=== PATIENT | female | born 1960 | race Caucasian/White ===

== ENCOUNTER 2020-06-01 23:52 | Observation (INO) | payer MEDICARE ==
[2020-06-02] MEDS ORDERED: hydrALAZINE 20 MG/ML VIAL SLOW IVP PRN (01:01)
[2020-06-02] MEDS ORDERED: Labetalol HCl 100 MG/20 ML VIAL SLOW IVP PRN (01:01)
[2020-06-02] MEDS ORDERED: Acetaminophen 325 MG TAB PO PRN (01:05)
[2020-06-02] MEDS ORDERED: Ondansetron ODT 4 MG TAB PO PRN (01:05)
[2020-06-02] MEDS ORDERED: Rosuvastatin 20 MG TAB PO SCH (01:15)
[2020-06-02] MEDS ORDERED: ALPRAZolam 1 MG TAB PO SCH (01:45)
[2020-06-02 02:13] VITALS: BMI 32.1
[2020-06-02 03:01] LABS: Bacteria/HPF None Seen HPF (None Seen); Bilirubin Negative (Negative); Blood, Urine Negative (Negative); Clarity Clear (Clear); Glucose, Urine (Dipstick) Normal (Negative); Ketone, Urine Negative (Negative); Leukocyte Negative Leu/uL (Negative); Nitrite Negative (Negative); Protein, Urine (Dipstick) Negative (Neg-Trace); RBC/HPF 0-3 HPF (0-3); Specific Gravity, Urine 1.046 (1.002-1.036); Squamous Epithelial 0-3 HPF (0-3); Urobilinogen Normal mg/dL (Less than 2); WBC/HPF 0-3 HPF (0-3); pH, Urine 5.5 (5.0-9.0)
[2020-06-02 04:47] LABS: #Lymphocytes 2.1 thou/uL (1.20-3.40); #Monocytes 0.6 thou/uL (0.11-0.59); #Neutrophils 4.9 thou/uL (1.40-6.50); %Basophils 0.3 % (0.0-1.0); %Eosinophils 0.2 % (0.0-10.0); %Lymphocytes 27.6 % (21.0-51.0); %Monocytes 8.3 % (0.0-10.0); %Neutrophils 63.5 % (42.0-75.0); Hemoglobin 11.4 g/dL (12.0-16.0); Mean Corpuscular HGB CONC 32.6 g/dL (32.0-36.0); Mean Corpuscular Hemoglobin 29.7 pg (27.0-31.0); Mean Corpuscular Volume 91.1 fL (78.0-98.0); Mean Platelet Volume 6.9 fL (7.4-10.4); Platelet Count 303 thou/uL (130-400); RBC Distribution Width 11.8 % (11.5-14.5); Red Blood Cell (RBC) Count 3.84 mill/uL (4.20-5.40); White Blood Cell (WBC) Count 7.7 thou/uL (4.8-10.8)
[2020-06-02 05:08] LABS: Anion Gap 11 mmol/L (10-20); BUN (Urea Nitrogen) 18 mg/dL (9.8-20.1); Calc. Creatinine Clearance 93 mL/min (70-130); Calcium 9.1 mg/dL (7.8-10.44); Carbon Dioxide 26 mmol/L (23-31); Cardiac Risk 4.6 (Less than 4.5); Chloride 106 mmol/L (98-107); Cholesterol 243 mg/dl (< 200 Desired); Glucose 104 mg/dL (80-115); HDL Cholesterol 53 mg/dL (>60 Neg Risk); LDL Cholesterol, Calculated 161 mg/dL; Potassium 4.2 mmol/L (3.5-5.1); Sodium 139 mmol/L (136-145); Triglycerides 146 mg/dL (Less than 150)
[2020-06-02] MEDS ORDERED: Lorazepam 1 MG TAB PO SCH (05:15)
[2020-06-02 05:33] LABS: Thyroid Stimulating Hormone 1.5931 uIU/mL (0.35-4.94)
[2020-06-02] MEDS: Bupropion 150 MG XL TAB PO SCH (07:55)
[2020-06-02] MEDS: Levothyroxine Sodium 100 MCG TAB PO SCH (07:55)
[2020-06-02] MEDS: Venlafaxine HCl XR 150 MG CAP PO SCH (07:56)
[2020-06-02 08:53] LABS: SARS-CoV-2 PCR by NAA Not Detected (NotDetected)
[2020-06-02] MEDS ORDERED: Aspirin 81 mg Enteric Coated Tablet PO SCH ×2 (09:00→09:30)
[2020-06-02] MEDS ORDERED: FLUTICASONE PO SCH (09:00)
[2020-06-02] MEDS ORDERED: UMECLIDIN PO SCH (09:00)
[2020-06-02] MEDS ORDERED: VILANTER PO SCH (09:00)
[2020-06-02] MEDS ORDERED: Aspirin 325 mg Enteric Coated Tablet PO SCH (09:00)
[2020-06-02] MEDS: Multivit, Therapeutic 1 TAB PO SCH (11:24)
[2020-06-02] MEDS: Folic Acid 1 MG TAB PO SCH (11:24)
[2020-06-02] MEDS ORDERED: Montelukast Sodium 10 mg Tablet PO SCH (21:00)
[2020-06-02] MEDS ORDERED: Rosuvastatin 10 MG TAB PO SCH (21:00)
[2020-06-03 07:25] VITALS: BP 113/73; TEMP 97.9
[2020-06-03] MEDS: Multivit, Therapeutic 1 TAB PO SCH (07:45)
[2020-06-03] MEDS: Levothyroxine Sodium 100 MCG TAB PO SCH (07:45)
[2020-06-03] MEDS: Venlafaxine HCl XR 150 MG CAP PO SCH (07:45)
[2020-06-03] MEDS: Folic Acid 1 MG TAB PO SCH (07:45)
[2020-06-03] MEDS: Bupropion 150 MG XL TAB PO SCH (07:46)
[2020-06-03] MEDS ORDERED: Aspirin 81 mg Enteric Coated Tablet PO SCH (09:00)
[2020-06-03] MEDS ORDERED: Cyanocobalamin (Vitamin B-12) 1,000 MCG TAB PO SCH (09:00)
[2020-06-03] MEDS ORDERED: Aspirin 325 mg Enteric Coated Tablet PO SCH (09:00)
[2020-06-03] MEDS ORDERED: Clopidogrel Bisulfate 75 MG TAB PO SCH (09:00)
== END 2020-06-03 10:01 | disposition home or self-care (01) ==
LOC: 2SE 23:52
PROVIDERS: ADMIT Student in an Organized Health Care Education/Training Program; ATTEND Internal Medicine
DX: G45.9 Transient cerebral ischemic attack, unspecified (principal); I65.22 Occlusion and stenosis of left carotid artery; E78.5 Hyperlipidemia, unspecified; E53.8 Deficiency of other specified B group vitamins; N18.2 Chronic kidney disease, stage 2 (mild); J44.9 Chronic obstructive pulmonary disease, unspecified; D64.9 Anemia, unspecified; E03.9 Hypothyroidism, unspecified; F32.9 Major depressive disorder, single episode, unspecified; Z79.899 Other long term (current) drug therapy; Z88.2 Allergy status to sulfonamides; Z20.822 Contact with and (suspected) exposure to COVID-19
CPT/HCPCS: 70551; 80048; 80061; 81001; 82607; 82746; 83735; 84443; 85025; 93306; 95712; 95819; 95957; 97139 ×2; G0378 ×2; U0003; U0005; 36415; 36416; 70496; 70498; 80053; 84484; 87635; 93005

== ENCOUNTER 2020-06-11 08:53 | Outpatient (CLI) | payer MEDICARE ==
[2020-06-11 17:16] LABS: SARS-CoV-2 PCR by NAA Not Detected (NotDetected)
== END 2020-06-11 08:54 | disposition home or self-care (01) ==
LOC: LABBT 08:53
PROVIDERS: ATTEND Thoracic Surgery (Cardiothoracic Vascular Surgery)
DX: Z01.812 Encounter for preprocedural laboratory examination (principal); I65.22 Occlusion and stenosis of left carotid artery; Z20.822 Contact with and (suspected) exposure to COVID-19
CPT/HCPCS: U0003; U0005; 87635

== ENCOUNTER 2020-06-11 09:15 | Inpatient (IN) | payer MEDICARE ==
[2020-06-16] MEDS ORDERED: Heparin 5,000 UNITS/ML VIAL ONE ×2 (06:35→06:42)
[2020-06-16] MEDS ORDERED: Protamine Sulfate 50 MG/5 ML VIAL ONE ×2 (06:35→06:42)
[2020-06-16] MEDS ORDERED: Fentanyl 100 MCG/2 ML VIAL ONE (06:35)
[2020-06-16] MEDS ORDERED: Phenylephrine 10 MG/ML VIAL ONE (06:36)
[2020-06-16] MEDS ORDERED: hydrALAZINE 20 MG/ML VIAL ONE (06:36)
[2020-06-16] MEDS ORDERED: Dexamethasone 4 mg/ml Vial ONE (06:42)
[2020-06-16] MEDS ORDERED: EPINEPHrine 1 MG/ML AMP ONE ×2 (06:42→06:48)
[2020-06-16] MEDS ORDERED: Bupivacaine PF 0.5% 30 ML VIAL ONE (06:42)
[2020-06-16] MEDS ORDERED: Glycopyrrolate 0.2 MG/ML 5 ML SYRINGE ONE (07:31)
[2020-06-16] MEDS ORDERED: Ketorolac Tromethamine 30 MG/ML VIAL ONE (07:31)
[2020-06-16] MEDS ORDERED: Lidocaine 1% PF 5 ML VIAL ONE (07:31)
[2020-06-16] MEDS ORDERED: Rocuronium Bromide 10 MG/ML (10ML VIAL) ONE (07:31)
[2020-06-16] MEDS ORDERED: PHENYLEPHRINE-NS 100 MCG/ML 10 ML SYRINGE ONE (07:31)
[2020-06-16] MEDS ORDERED: Dexamethasone 20 MG/5 ML VIAL ONE (07:31)
[2020-06-16] MEDS ORDERED: PROPOFOL 200 MG/20 ML VIAL ONE (07:31)
[2020-06-16] MEDS ORDERED: Ondansetron PF 4 MG/2 ML Vial ONE (07:31)
[2020-06-16] MEDS ORDERED: Nitroglycerin 50 MG/250 ML BOT 250 ML IVPB PRN (08:52)
[2020-06-16] MEDS ORDERED: traMADol HCl 50 MG TAB PO PRN ×2 (08:52)
[2020-06-16] MEDS ORDERED: Phenylephrine 40 MG in Sodium Chloride 0.9% 250 ML 250 ML IVPB PRN (08:52)
[2020-06-16] MEDS ORDERED: Fentanyl 100 MCG/2 ML VIAL SLOW IVP PRN (08:52)
[2020-06-16] MEDS ORDERED: Ondansetron PF 4 MG/2 ML Vial IVP PRN (08:52)
[2020-06-16] MEDS ORDERED: Acetaminophen 325 MG TAB PO PRN (08:52)
[2020-06-16] MEDS ORDERED: hydrALAZINE 20 MG/ML VIAL SLOW IVP PRN (08:52)
[2020-06-16] MEDS ORDERED: Non-Formulary Item 1 EACH (Fluticasone/Umeclidin/Vilanter [Trelegy Ellipta 100-62.5-25] 1 PO SCH (09:00)
[2020-06-16] MEDS ORDERED: (Roflumilast [Daliresp] 500 MCG Tablet) PO SCH (09:00)
[2020-06-16] MEDS ORDERED: Promethazine HCl 25 MG/ML VIAL IM PRN (09:01)
[2020-06-16] MEDS ORDERED: Promethazine HCl 25 MG/ML VIAL SLOW IVP PRN (09:01)
[2020-06-16] MEDS ORDERED: Ondansetron HCl/PF 4 MG/2 ML Vial IVP PRN (09:01)
[2020-06-16 10:37] VITALS: BP 105/52
[2020-06-16] MEDS: Folic Acid 1 MG TAB PO SCH (11:17)
[2020-06-16] MEDS: Multivit, Therapeutic 1 TAB PO SCH (11:17)
[2020-06-16] MEDS: Cyanocobalamin (Vitamin B-12) 1,000 MCG TAB PO SCH (11:17)
[2020-06-16] MEDS: Venlafaxine HCl XR 150 MG CAP PO SCH (11:17)
[2020-06-16] MEDS: Sodium Chloride 0.9% 1,000 ML IV SCH ×3 (11:20→19:45)
[2020-06-16] MEDS: Bupropion 150 MG XL TAB PO SCH (11:22)
[2020-06-16 11:36] VITALS: BMI 32.8
[2020-06-16] MEDS: CEFAZOLIN 2 GM in Premix Bag 1 BAG IVPB SCH ×2 (15:31→23:55)
[2020-06-16] MEDS ORDERED: Mometasone 100 MCG/PUFF (1 INHALER) INH SCH (18:30)
[2020-06-16] MEDS ORDERED: Montelukast Sodium 10 mg Tablet PO SCH (21:00)
[2020-06-16] MEDS ORDERED: Rosuvastatin 10 MG TAB PO SCH (21:00)
[2020-06-17] MEDS ORDERED: Levothyroxine Sodium 100 MCG TAB PO SCH (06:00)
[2020-06-17] MEDS: Sodium Chloride 0.9% 1,000 ML IV SCH (06:08)
[2020-06-17] MEDS: CEFAZOLIN 2 GM in Premix Bag 1 BAG IVPB SCH (08:02)
[2020-06-17] MEDS: Bupropion 150 MG XL TAB PO SCH (08:03)
[2020-06-17] MEDS: Multivit, Therapeutic 1 TAB PO SCH (08:04)
[2020-06-17] MEDS: Cyanocobalamin (Vitamin B-12) 1,000 MCG TAB PO SCH (08:04)
[2020-06-17] MEDS: Folic Acid 1 MG TAB PO SCH (08:04)
[2020-06-17] MEDS: Venlafaxine HCl XR 150 MG CAP PO SCH (08:05)
[2020-06-17] MEDS ORDERED: Dicyclomine 10 MG CAP PO PRN (08:48)
[2020-06-17] MEDS ORDERED: Aspirin 81 mg Enteric Coated Tablet PO SCH (09:00)
[2020-06-17] MEDS ORDERED: Clopidogrel Bisulfate 75 MG TAB PO SCH (09:00)
[2020-06-17 09:48] VITALS: TEMP 98
== END 2020-06-17 09:46 | disposition home or self-care (01) | DRG 39 ==
LOC: SURG A 06-16 06:25 → EDSTATUS 06-16 09:15 → CCU 06-16 10:38
PROVIDERS: ADMIT Thoracic Surgery (Cardiothoracic Vascular Surgery); ATTEND Thoracic Surgery (Cardiothoracic Vascular Surgery)
PROC: 03CJ0ZZ Extirpation of Matter from Left Common Carotid Artery, Open Approach (ICD-10-PCS; principal; 2020-06-16)
PROC: 03CN0ZZ Extirpation of Matter from Left External Carotid Artery, Open Approach (ICD-10-PCS; 2020-06-16)
PROC: 03UJ0KZ Supplement Left Common Carotid Artery with Nonautologous Tissue Substitute, Open Approach (ICD-10-PCS; 2020-06-16)
PROC: 07B20ZX Excision of Left Neck Lymphatic, Open Approach, Diagnostic (ICD-10-PCS; 2020-06-16)
PROC: 03CL0ZZ Extirpation of Matter from Left Internal Carotid Artery, Open Approach (ICD-10-PCS; 2020-06-16)
PROC: 03UL0KZ Supplement Left Internal Carotid Artery with Nonautologous Tissue Substitute, Open Approach (ICD-10-PCS; 2020-06-16)
DX: I65.22 Occlusion and stenosis of left carotid artery (principal); R47.01 Aphasia; J44.9 Chronic obstructive pulmonary disease, unspecified; E78.5 Hyperlipidemia, unspecified; E03.9 Hypothyroidism, unspecified; Z20.822 Contact with and (suspected) exposure to COVID-19; Z88.2 Allergy status to sulfonamides; Z90.49 Acquired absence of other specified parts of digestive tract; Z90.721 Acquired absence of ovaries, unilateral
CPT/HCPCS: 88184; 88307; 94640; J0171; J0360; J0690; J1100; J1642; J1644; J1885; J2370; J2405; J2704; J2720; J3010; J7620; S0020